=== PATIENT | female | born 1975 | race Caucasian/White ===

== ENCOUNTER 2017-01-31 09:32 | Emergency (ER) | payer OTHER ==
[~2017-01-31] VITALS: Ht 160 cm; Wt 98.4 kg
[~2017-01-31 09:32] MED LIST: MOTRIN800 MG PO
[2017-01-31 10:15] LABS: EOSINOPHIL (%) 1.5 % (0-5); EOSINOPHIL COUNT 0.1 K/uL (0-0.3); HEMATOCRIT 33.2 % (36.0-46.0); IMMATURE GRANULOCYTE (%) 0.3 % (0.0-0.7); INSTRUMENT ABS NEUTROPHIL CT 4.2 K/uL; LYMPHOCYTE COUNT 1.9 K/uL (1.0-2.8); MCH 23.8 PG (29.0-34.0); MCHC 30.4 G/DL (30.0-36.0); MCV 78.3 FL (83-99); MEAN PLAT.VOLUME 9.4 uM^3 (9.5-12.4); MONOCYTE (%) 7.5 % (3-12); MONOCYTE COUNT 0.5 K/uL (0-0.8); NEUTROPHIL (%) 61.8 % (45-76); NEUTROPHIL COUNT 4.2 K/uL (1.8-6.4); PLATELET COUNT 265 K/uL (156-360); RBC DIS.WIDTH-CV 14.5 % (11.8-14.6); RBC DIS.WIDTH-SD 40.4 % (39-53); RED BLOOD COUNT 4.24 M/uL (3.80-5.20); WHITE BLOOD COUNT 6.8 K/uL (4.1-10.2)
[2017-01-31 10:28] LABS: CHLORIDE 105 mEq/L (99-109); POTASSIUM 4.6 mEq/L (3.7-5.4); SODIUM 139 mEq/L (136-147)
[2017-01-31 10:30] LABS: GLUCOSE 107 mg/dL (70-99)
[2017-01-31 10:31] LABS: ANION GAP 8 MEQ/L (2-14)
[2017-01-31 10:33] LABS: GFR ESTIMATE (CALCULATED) > 59 mL/min/
[2017-01-31 10:34] LABS: UREA NITROGEN (BUN) 9 mg/dL (9-23)
[2017-01-31 10:43] LABS: TROP-I INTERPRETATION NEGATIVE; TROPONIN-I < 0.01 ng/mL (0.0-0.30)
[2017-01-31 10:55] LABS: D-DIMER ELISA < 150.00 ng/mLDDU (<230)
[2017-01-31 13:25] LABS: TROP-I INTERPRETATION NEGATIVE; TROPONIN-I < 0.01 ng/mL (0.0-0.30)
[2017-01-31] MEDS ORDERED: TYLENOL WITH C1 EACH PO (13:43)
[2017-01-31 13:47] VITALS: BP 106/71
== END 2017-01-31 14:05 | disposition home or self-care (01) ==
LOC: EME → EDBD 09:32 → EME 14:05
PROVIDERS: Emergency Medicine
DX: R07.89 Other chest pain (principal); M79.602 Pain in left arm
CPT/HCPCS: 71010; 80048; 84484; 85025; 85379; 93005; 99281; 99285; J1885